=== PATIENT | female | born 1985 | race American Indian/Alaskan Native ===

== ENCOUNTER 2017-06-04 23:29 | Emergency (ER) | payer MEDICAID ==
[2017-06-05 01:14] VITALS: BP 135/67
[2017-06-05 02:16] LABS: Hematocrit 40.7 % (30.3-42.9); Hemoglobin 13.7 gm/dl (10.1-14.3); Mean Corpuscular HGB Conc 34 % (30-34); Mean Corpuscular Hemoglobin 31 pg (28-32); Mean Corpuscular Volume 92 fl (79-97); Platelet Count 260 K/mm3 (140-440); Red Blood Count 4.42 M/mm3 (3.65-5.03); Red Cell Distribution Width 13.2 % (13.2-15.2)
[2017-06-05 03:13] LABS: Band Neutrophils # (Manual) 0.5 K/mm3; Total Cells Counted 100
[2017-06-05 03:14] LABS: Alanine Aminotransferase 10 units/L (7-56); Albumin 4.3 g/dL (3.9-5); Anisocytosis 1+; BUN/Creatinine Ratio 17; Blood Urea Nitrogen 10 mg/dL (7-17); Calcium 9.1 mg/dL (8.4-10.2); Hemolysis Index 8; Large Platelets Few
[2017-06-05 06:31] LABS: Amorphous Crystals,Urine 1+; Bilirubin,Urine NEG (Negative); Blood,Urine NEG (Negative); Color,Urine Yellow (Yellow); Mucus,Urine 1+ /HPF; Nitrite,Urine NEG (Negative); Protein,Urine <15 mg/dL mg/dL (Negative); Urobilinogen,Urine < 2.0 mg/dL (<2.0)
== END 2017-06-05 06:30 | disposition left against medical advice (07) ==
LOC: ED 23:29
DX: R10.9 Unspecified abdominal pain (principal); Z53.21 Procedure and treatment not carried out due to patient leaving prior to being seen by health care provider
CPT/HCPCS: 36415; 80053; 81001; 84703; 85007; 85025

== ENCOUNTER 2017-07-10 16:40 | Emergency (ER) | payer OTHER, MEDICAID ==
[2017-07-10 17:15] VITALS: BP 114/74
[2017-07-10] MEDS ORDERED: DECADRON IM ONE (18:28)
--- NOTE | 2017-07-10 18:30 | Emergency Department Report ---
ED Back Pain/Injury HPI - General Chief Complaint: Back Pain/Injury Stated Complaint: BACK PAIN Time Seen by Provider: 07/10/17 18:15 Source: patient Limitations: No Limitations - History of Present Illness Initial Comments: Patient is a 31-year-old female who is 9 weeks who is presenting with right sided back pain. Patient states she is artery on light duty because of some back trouble that she required at work. Patient was at work today and bent over and started feeling some acute worsening right lower back pain with radiation into the buttock and up to the knee. Patient denies any trauma today she has no vaginal bleeding or vaginal discharge or dysuria at this time. Severity: moderate Severity scale (0 -10): 6 Quality: burning, sharp Worsens With: movement - Related Data Previous Rx's Medication Instructions Recorded Last Taken Type Cyclobenzaprine HCl [Flexeril 5 MG 5 mg PO TID #10 tab 07/10/17 Unknown Rx TAB] Allergies Allergy/AdvReac Type Severity Reaction Status Date / Time No Known Allergies Allergy Unverified 06/05/17 01:06 ED Review of Systems ROS: Stated complaint: BACK PAIN Other details as noted in HPI Comment: All other systems reviewed and negative ED Back Pain Physical Exam - Exam General: Vital signs noted. No distress. Alert and acting appropriately. Back/Abdomen: Yes Straight Leg Raise Pain, No Abdominal Tenderness, No Perithoracic Tenderness, No Perilumbar Tenderness, No Sacroiliac Tenderness, No Flank Tenderness Neuro: Yes Normal Sensation, Yes Normal DTR's, Yes Normal Gait, No Motor Weakness ED Course Vital Signs 07/10/17 17:11 Temperature 97.6 F Pulse Rate 104 H Respiratory 18 Rate Blood Pressure 114/74 O2 Sat by Pulse 99 Oximetry ED Medical Decision Making - Medical Decision Making Patient is a 31-year-old female who is presenting with sciatic pain. Patient is but can't take Flexeril and were also going to give her a very low- dose Decadron shot. Critical care attestation.: If time is entered above; I have spent that time in minutes in the direct care of this critically ill patient, excluding procedure time. ED Disposition Clinical Impression: Sciatica Qualifiers: Laterality: right Qualified Code(s): M54.31 - Sciatica, right side Disposition: - TO HOME OR SELFCARE Is pt being admited?: No Does the pt Need Aspirin: No Condition: Fair Instructions: Sciatica (ED), Lumbar Radiculopathy (ED) Prescriptions: Cyclobenzaprine HCl [Flexeril 5 MG TAB] 5 mg PO TID #10 tab
== END 2017-07-10 18:33 | disposition home or self-care (01) ==
LOC: ED 16:40
DX: O26.891 Other specified pregnancy related conditions, first trimester (principal); M54.31 Sciatica, right side; Z3A.09 9 weeks gestation of pregnancy; X50.0XXA Overexertion from strenuous movement or load, initial encounter; Y93.89 Activity, other specified; Y92.89 Other specified places as the place of occurrence of the external cause; Y99.8 Other external cause status
CPT/HCPCS: 96372; 99282; J1100